=== PATIENT | female | born 1975 | race American Indian/Alaskan Native ===

== ENCOUNTER 2017-06-24 21:20 | Emergency (ER) | payer OTHER ==
[2017-06-24] MEDS ORDERED: NACL 0.9% 500 ML 500 ML IV ONE (22:07)
--- NOTE | 2017-06-24 22:09 | Emergency Department Report ---
ED General Adult HPI - General Chief complaint: Seizure Stated complaint: SEIZURE Time Seen by Provider: 06/24/17 21:59 Source: family, RN notes reviewed Limitations: Altered Mental Status - History of Present Illness Initial comments: This is a 42-year-old female, the patient is previously known to this provider. Patient is brought to the hospital by EMS. As per EMS documentation, patient was complaining of unresponsiveness and possible seizure. EMS documents that patient has a past medical history of unresponsiveness and possible seizure, patient was noted to be alert and oriented upon EMS arrival. Past medical history includes gastroparesis, hypertension, congestive heart failure, seizure. Friends advise that the patient was at a bar talking with each other when she "passed out." EMS indicates the patient did not fall but slumped over in a chair. Patient assessed and was found to have positive altered mental status, conscious alert and oriented 1. Patient is now accompanied by her . Patient's reports that the patient has a history of gastroparesis, and that she typically "passes out or has a seizure" when her potassium gets low. He does not know what medications he takes, but he reports that she follows at [facility] for infusions. He does not know the name of her primary care doctor or her neurologist specialist. History is limited otherwise is the patient is currently altered and sleeping particularly her airway, she cannot describe exacerbating or relieving factors. -: Sudden Improves with: none Worsens with: none Associated Symptoms: confusion, weakness ED Review of Systems ROS: Stated complaint: SEIZURE Other details as noted in HPI Comment: Unobtainable due to pts medical conditions ED Past Medical Hx - Past Medical History Previous Medical History?: Yes Hx Hypertension: Yes Hx Congestive Heart Failure: Yes Hx Headaches / Migraines: Yes Hx Seizures: Yes - Surgical History Past Surgical History?: No - Social History Smoking Status: Unknown if ever smoked ED Physical Exam - General Limitations: No Limitations, Altered Mental Status General appearance: in no apparent distress, lethargic - Head Head exam: Present: atraumatic, normocephalic - Eye Eye exam: Present: normal appearance, PERRL - ENT ENT exam: Present: normal orophraynx, mucous membranes moist - Neck Neck exam: Present: normal inspection. Absent: tenderness, meningismus - Respiratory Respiratory exam: Present: normal lung sounds bilaterally. Absent: respiratory distress - Cardiovascular Cardiovascular Exam: Present: regular rate, normal rhythm, normal heart sounds. Absent: bradycardia, tachycardia, irregular rhythm, systolic murmur, diastolic murmur, rubs, gallop - GI/Abdominal GI/Abdominal exam: Present: soft, normal bowel sounds. Absent: distended, tenderness, guarding, rebound, rigid, pulsatile mass - Extremities Exam Extremities exam: Present: normal inspection, normal capillary refill. Absent: pedal edema, calf tenderness - Back Exam Back exam: Present: normal inspection. Absent: tenderness, CVA tenderness (R), paraspinal tenderness, vertebral tenderness - Neurological Exam Neurological exam: Present: altered, other (patient does not follow commands, does not speak, and does not move extremities) - Psychiatric Psychiatric exam: Present: normal affect, normal mood - Skin Skin exam: Present: warm, dry, intact, normal color. Absent: rash ED Course Vital Signs 06/24/17 06/24/17 06/24/17 21:38 21:46 22:00 Temperature Pulse Rate 90 88 Respiratory 16 15 14 Rate Blood Pressure 78/61 97/57 O2 Sat by Pulse 98 99 97 Oximetry 06/24/17 06/24/17 06/24/17 22:04 22:12 22:16 Temperature 97.4 F L Pulse Rate 87 86 Respiratory 20 14 Rate Blood Pressure 97/57 97/57 O2 Sat by Pulse 97 97 98 Oximetry 06/24/17 06/24/17 06/24/17 22:30 22:45 23:37 Temperature Pulse Rate 88 84 82 Respiratory 18 15 13 Rate Blood Pressure 94/61 94/61 100/63 O2 Sat by Pulse 98 98 99 Oximetry 06/24/17 06/25/17 06/25/17 23:46 00:00 00:16 Temperature Pulse Rate 82 83 82 Respiratory 14 14 13 Rate Blood Pressure 100/63 96/63 96/63 O2 Sat by Pulse 100 99 Oximetry 06/25/17 06/25/17 06/25/17 00:30 00:46 01:00 Temperature Pulse Rate 85 85 86 Respiratory 13 14 14 Rate Blood Pressure 95/59 95/59 93/59 O2 Sat by Pulse 99 98 90 Oximetry 06/25/17 06/25/17 06/25/17 01:16 01:30 01:46 Temperature Pulse Rate 88 84 86 Respiratory 14 14 14 Rate Blood Pressure 93/59 100/61 100/61 O2 Sat by Pulse 97 100 97 Oximetry 06/25/17 06/25/17 02:00 02:16 Temperature Pulse Rate 86 84 Respiratory 14 14 Rate Blood Pressure 111/68 111/68 O2 Sat by Pulse 98 100 Oximetry - Reevaluation(s) Reevaluation #1: 06/24/17 22:28 Differential diagnosis, including not limited to: Electrolyte derangement, intracranial injury, cervical spine injury, pneumonia, urinary tract infection, intoxication, toxic effect of drugs Assessment and plan: 42-year-old female who is currently altered, possibly postictal, reports history of seizures and electrolyte derangement, we have requested her medical records from [facility], still waiting for them to arrive, since patient is altered, and may have head trauma, noncontrast CT scan of the brain and cervical spine pending. Her reports that the patient has not given or delivered within the past 2 months, and he reports that the patient does not take control tablets. Laboratory studies, x-ray of the chest, EKG, urinalysis pending. Reevaluation #2: 06/24/17 23:16 old medical records are reviewed Past medical history includes hypertension, gastroparesis, unknown etiology, takes scopolamine and Ativan, X Gastroenterology: Dr. Vicente Includes documentation indicates the patient is status post hysterectomy Medications from June 15: Benadryl 50 mg twice daily as needed By systolic, 10 mg daily at bedtime Duloxetine 60 mg delayed release, every morning lizness 150 mg, orally, twice daily Sumatriptan 100 mg as needed for migraine headache Xanax, 1 mg orally, every 8 hours, when necessary anxiety Zofran, 8 mg, every 8 hours, when necessary nausea vomiting Tylenol, 325 mg, every 6 hours when necessary pain Clonidine 0.2 mg per 24 hour transdermal film extended release, 1 patch Lasix, 40 mg daily Gabapentin, 100 mg daily at bedtime HCTZ triamterene 25 mg/37.5 mg every morning Prednisone 5 mg daily Zolpidem 10 mg daily at bedtime when necessary sleep Patient also had a CT scan of the abdomen and pelvis on 06/15/2017, which demonstrated mild fluid and mesenteric reaction in the region of the duodenal limb and pancreas, may be seen clinically in duodenitis or mild pancreatitis Reevaluation #3: 06/25/17 00:13 Patient sleeping comfortably with no convulsive events. Blood alcohol level is elevated. Laboratory studies objectively unremarkable, noncontrast CT scan of the brain and cervical spine negative. Patient resting comfortable a monitor with no distress. We will await clinical sobriety. Reevaluation #4: 06/25/17 04:48 Patient observed in the ER for 7.5 hours. Patient has had no active vomiting. Patient now awake although still somewhat intoxicated. Patient endorses chronic abdominal pain. She is alert to name, year, location. She walks with a steady gait. Her belly is soft again on repeat examination. Her is with her, and he feels comfortable to take the patient home and watch over her. Patient is instructed to exercise caution when consuming alcoholic beverages in the future, and she can follow up with her outpatient box blank machine operator, Dr. Vicente, for her chronic abdominal pain. ED Medical Decision Making - Lab Data Result diagrams: 06/24/17 22:59 06/24/17 22:59 Vital Signs 06/24/17 06/24/17 06/24/17 21:38 21:46 22:00 Temperature Pulse Rate 90 88 Respiratory 16 15 14 Rate Blood Pressure 78/61 97/57 O2 Sat by Pulse 98 99 97 Oximetry 06/24/17 06/24/17 22:04 22:12 Temperature 97.4 F L Pulse Rate 87 Respiratory 20 Rate Blood Pressure 97/57 O2 Sat by Pulse 97 97 Oximetry - EKG Data -: EKG Interpreted by Me EKG shows normal: sinus rhythm - EKG Data 06/24/17 23:16 Sinus, 83 bpm, normal axis, QTC prolonged, motion artifact, not morphologically consistent with ST elevation myocardial infarction - Radiology Data Radiology results: report reviewed, image reviewed interpreted by me: X-ray the chest, interpreted by me: No acute disease, left-sided port is noted, possible atelectasis. Noncontrast CT scan of the brain and cervical spine, interpreted by radiology: No acute disease, no intracranial hemorrhage. Critical care attestation.: If time is entered above; I have spent that time in minutes in the direct care of this critically ill patient, excluding procedure time. ED Disposition Clinical Impression: Alcohol intoxication Disposition: DC-01 TO HOME OR SELFCARE Is pt being admited?: No Does the pt Need Aspirin: No Condition: Stable Instructions: Alcohol Intoxication (ED) Additional Instructions: Do not drive her car or operate motor vehicles unless cleared by either a primary care doctor or neurology specialist or your gastroenterology specialist. Please be mindful of alcohol consumption in the future, and make certain to moderate alcohol consumption if you decide to consume in the future. Follow-up with a primary care doctor or box blank machine operator or neurologist within the next 7-10 days. Return to the ER right away with fevers, chills, lethargy, irritability, projectile vomiting, change in mental status, confusion , inability to tolerate liquid feeds, projectile vomiting, weakness. Dr. Ceron is a local gastroenterology specialist. Local neurology specialists include Drs. Ferrera and Jourdan Referrals: EMIGDIO MEZA MD [Primary Care Provider] - 3-5 Days JERRY CERON MD [Staff Physician] - 3-5 Days SUSHIL FERRERA MD [Staff Physician] - 3-5 Days ARON CASTORENA MD [Staff Physician] - 3-5 Days
[2017-06-24] MEDS ORDERED: NACL 0.9% 1000 ML 2,000 ML IV ONE (22:29)
[2017-06-24 23:29] LABS: Bacteria,Urine 1+ /HPF (Negative); Bilirubin,Urine NEG (Negative); Blood,Urine NEG (Negative); Color,Urine Straw (Yellow); Nitrite,Urine NEG (Negative); Protein,Urine <15 mg/dL mg/dL (Negative); RBC,Urine < 1.0 /HPF (0.0-6.0); Urobilinogen,Urine < 2.0 mg/dL (<2.0); WBC,Urine < 1.0 /HPF (0.0-6.0)
[2017-06-24 23:34] LABS: BUN/Creatinine Ratio 13; Blood Urea Nitrogen 8 mg/dL (7-17); Calcium 8.2 mg/dL (8.4-10.2); Hemolysis Index 3
[2017-06-24 23:46] LABS: Hematocrit 33.7 % (30.3-42.9); Hemoglobin 10.4 gm/dl (10.1-14.3); Mean Corpuscular HGB Conc 31 % (30-34); Mean Corpuscular Volume 76 fl (79-97); Platelet Count 406 K/mm3 (140-440); Red Blood Count 4.41 M/mm3 (3.65-5.03)
[2017-06-24 23:49] LABS: Mean Corpuscular Hemoglobin 24 pg (28-32)
[2017-06-24 23:51] LABS: Amphetamine Screen,Urine PRESUMPTIVE NEGATIVE; Benzodiazepines Screen,Urine PRESUMPTIVE NEGATIVE; Cannabinoid Screen,Urine PRESUMPTIVE NEGATIVE; Cocaine Screen,Urine PRESUMPTIVE NEGATIVE; Methadone Screen,Urine PRESUMPTIVE NEGATIVE; Opiate Screen,Urine PRESUMPTIVE NEGATIVE
[2017-06-24 23:59] LABS: INR 1.01 (0.87-1.13)
--- NOTE | 2017-06-25 00:03 | Cat Scan Report ---
FINAL REPORT EXAM: CT HEAD/BRAIN WO CON HISTORY: sz vs syncope ? head traum,a COMPARISON: None available. TECHNIQUE: Axial images obtained skull base through vertex. FINDINGS: No acute intracranial hemorrhage, midline shift or pathologic extra axial fluid collection. Ventricles and cisterns are normal in size and configuration for the patient's age. Aguirre-white differentiation preserved. Calvarium grossly intact. Orbits are grossly unremarkable. Visualized para-nasal sinuses and mastoid air cells are clear. Incomplete fusion of posterior arch of C1, anatomic variant. IMPRESSION: No grossly acute intracranial abnormality.
--- NOTE | 2017-06-25 00:10 | Cat Scan Report ---
FINAL REPORT EXAM: CT CERVICAL SPINE WO CON HISTORY: sz vs syncope ? head traum,a COMPARISON: None available. TECHNIQUE: Axial images obtained through the cervical spine. Additional sagittal and coronal reformatted images were obtained. FINDINGS: Mild straightening normal lordotic curvature of the cervical spine. Cervical vertebral body heights are preserved. No acute fracture or traumatic subluxation. Odontoid process, articular pillars and occipital condyles are intact. Broad-based disc bulge and endplate osteophyte at the C3-C4 level causes mild canal stenosis and foraminal narrowing. No significant canal or foramina ring throughout the remainder of the cervical spine. Incomplete fusion of the anterior arch and posterior arch of C1, anatomic variant. IMPRESSION: No acute fracture or subluxation of the cervical spine.
--- NOTE | 2017-06-25 00:28 | XRay Report ---
FINAL REPORT EXAM: XR CHEST 1V AP HISTORY: sz; pna COMPARISON: None available. FINDINGS: Frontal view(s) of the chest obtained. Heart upper limits normal in size. Left-sided Port-A-Cath is in place. Shallow inspiration. Nonspecific patchy opacities at the lung bases concerning for mild atelectasis. Small focus of pneumonia or congestion is not excluded. There may be trace bilateral pleural effusions. No pneumothorax. IMPRESSION: Shallow inspiration with nonspecific patchy opacities at the lung bases which could reflect atelectasis, congestion, or pneumonia. There may be trace bilateral pleural effusions.
[2017-06-25 04:56] VITALS: BP 113/78
== END 2017-06-25 05:33 | disposition home or self-care (01) ==
LOC: ED 21:20
DX: F10.129 Alcohol abuse with intoxication, unspecified (principal); I11.0 Hypertensive heart disease with heart failure; I50.9 Heart failure, unspecified; G43.909 Migraine, unspecified, not intractable, without status migrainosus
CPT/HCPCS: 36415; 70450; 71010; 72125; 80048; 80307; 81001; 82550; 83735; 84702; 85027; 85610; 85730; 93005; 93010; 99284; G0480; J7030; 80320